=== PATIENT | female | born 1935 | race Caucasian/White ===

== ENCOUNTER 2020-03-30 07:44 | Day surgery (SDC) | payer MEDICARE, MEDICAID ==
--- NOTE | 2020-03-30 07:20 | PCM.PREANE ---
Preanesthetic Assessment - Anesthesia/Transfusion/Family Hx Anesthesia History: Prior Anesthesia Without Reaction Family History of Anesthesia Reaction: No Transfusion History: Prior Transfusion Without Reaction Intubation History: Unknown - Review of Systems General: No Symptoms Pulmonary: No Symptoms (ETOH: 1-2 wine coolers/night), Cough (from painting wood work) Cardiovascular: No Symptoms (Elevated cholesterol, HTN), Lightheadedness (positional changes quickly) Gastrointestinal: No Symptoms (GERD-controlled) Neurological: No Symptoms Other: Reports: None, Easy Bruising, Diabetes (am blood sugar=not taken, on oral agents), Thyroid Problems (Hypothyroid) - Physical Assessment NPO Status Date: 03/29/20 NPO Status Time: 21:00 Vital Signs: HR:55 B/P:150/63 Temp:97.3 Rep:16 Sat:97% Height: 1.63 m Weight: 64.864 kg ASA Class: 2 Mental Status: Alert & Oriented x3 Airway Class: Mallampati = 2 Dentition: Reports: Dentures (upper), Partial (lower) Thyro-Mental Finger Breadths: 3 Mouth Opening Finger Breadths: 3 ROM/Head Extension: Full Lungs: Clear to Auscultation, Normal Respiratory Effort Cardiovascular: Regular Rate, Regular Rhythm, No Murmurs - Allergies Allergies/Adverse Reactions: Allergies Allergy/AdvReac Type Severity Reaction Status Date / Time No Known Allergies Allergy Verified 03/29/20 10:32 - Anesthesia Plan Pre-Op Medication Ordered: None - Acknowledgements Anesthesia Type Planned: MAC Pt an Appropriate Candidate for the Planned Anesthesia: Yes Alternatives and Risks of Anesthesia Discussed w Pt/Guardian: Yes Pt/Guardian Understands and Agrees with Anesthesia Plan: Yes PreAnesthesia Questionnaire - HOME MEDS Home Medications: Home Meds Alendronate Sodium [Fosamax] 70 mg PO WE 03/29/20 [History] Aspirin 81 mg PO DAILY 03/29/20 [History] Latanoprost/Pf [Latanoprost 0.005% Eye Drop] 1 drop EYEBOTH BEDTIME 03/29/20 [History] Levothyroxine 75 mcg PO DAILY 03/29/20 [History] Omeprazole Magnesium [Prilosec Otc] 20 mg PO DAILY 03/29/20 [History] Simvastatin [Zocor] 40 mg PO DAILY 03/29/20 [History] Zolpidem [Ambien] 5 mg PO BEDTIME PRN 03/29/20 [History] lisinopriL [Lisinopril] 10 mg PO DAILY 03/29/20 [History] metFORMIN [Glucophage] 500 mg PO DAILY 03/29/20 [History] - CURRENT (IN HOUSE) MEDS Current Meds: Current Medications Brimonidine Tartrate (Alphagan 0.2% Ophth Soln) 0 ml EYERT ASDIRECTED BERNARD Stop: 03/30/20 18:00 Cefuroxime Sodium (Zinacef) 0 mg EYERT ASDIRECTED BERNARD Stop: 03/30/20 18:00 Lidocaine HCl (Xylocaine-Mpf 1%) 0 ml INJECT ASDIRECTED BERNARD Stop: 03/30/20 18:00 Phenylephrine HCl (Nasim-Synephrine 2.5% Ophth Soln) 0 ml EYERT ASDIRECTED BERNARD Stop: 03/30/20 18:00 Pilocarpine HCl (Pilocar 4% Ophth Soln) 0 ml EYERT ASDIRECTED BERNARD Stop: 03/30/20 18:00 Polymyxin/Trimethoprim Sulfate (Polytrim Ophth Soln) 0 ml EYERT ASDIRECTED BERNARD Stop: 03/30/20 18:00 Tetracaine HCl (Tetracaine 0.5% Steri-Unit Zoya) 0 ml EYEBOTH ASDIRECTED BERNARD Stop: 03/30/20 18:00 Tropicamide (Mydriacyl 1% Oph Soln) 0 ml EYERT ASDIRECTED BERNARD Stop: 03/30/20 18:00
[~2020-03-30 07:44] MED LIST: Lidocaine 1% PF 2 ML SDV INJECT SCH
[2020-03-30] MEDS: Polymyxin B/Trimethoprim 10 ML Bottle EYERT SCH ×4 (07:59→10:10)
[2020-03-30] MEDS: Brimonidine 0.2% Ophth Soln 5 ML Bottle EYERT SCH ×4 (08:05→10:10)
[2020-03-30] MEDS: Phenylephrine 2.5% Ophth Soln 2 ML Bot EYERT SCH ×5 (08:10→09:50)
[2020-03-30] MEDS: Tropicamide 1% Ophth Soln 15 ML Bottle EYERT SCH ×4 (08:14→09:15)
[2020-03-30] MEDS: Tetracaine HCl/PF 0.5% 4 ML Bottle EYEBOTH SCH ×2 (09:32→09:57)
--- NOTE | 2020-03-30 10:01 | PCM48HPAN ---
Post Anesthesia Note - EVALUATION WITHIN 48HRS OF ANESTHETIC Vital Signs in Normal Range: Yes Patient Participated in Evaluation: Yes Respiratory Function Stable: Yes Airway Patent: Yes Cardiovascular Function Stable: Yes Hydration Status Stable: Yes Pain Control Satisfactory: Yes Nausea and Vomiting Control Satisfactory: Yes Mental Status Recovered: Yes Vital Signs: Last Vital Signs Temp 36.3 C 03/30/20 07:40 Pulse 55 L 03/30/20 07:40 Resp 16 03/30/20 07:40 BP 150/63 H 03/30/20 07:40 Pulse Ox 97 03/30/20 07:40
[2020-03-30] MEDS: Pilocarpine 4% Ophth Soln 15 ML Bot EYERT SCH ×2 (10:05→10:10)
[2020-03-30] MEDS: Cefuroxime 10 MG/ML SYRINGE EYERT SCH ×2 (10:05→10:09)
== END 2020-03-30 10:22 | disposition home or self-care (01) ==
LOC: JD.SDS 07:44
PROVIDERS: ATTEND Ophthalmology
DX: E11.36 Type 2 diabetes mellitus with diabetic cataract (principal); H25.813 Combined forms of age-related cataract, bilateral; H40.1134 Primary open-angle glaucoma, bilateral, indeterminate stage; H16.103 Unspecified superficial keratitis, bilateral; H16.223 Keratoconjunctivitis sicca, not specified as Sjogren's, bilateral; H02.834 Dermatochalasis of left upper eyelid; H02.831 Dermatochalasis of right upper eyelid; H21.81 Floppy iris syndrome; H21.41 Pupillary membranes, right eye; Z79.82 Long term (current) use of aspirin; Z79.899 Other long term (current) drug therapy; Z79.84 Long term (current) use of oral hypoglycemic drugs; Z79.890 Hormone replacement therapy
CPT/HCPCS: 66982; J0697; J2001; C1780